=== PATIENT | male | born 1945 | race Caucasian/White ===

== ENCOUNTER → 2018-08-21 | Outpatient (CLI) | payer MEDICARE ==
[~2018-08-21] MED LIST: AMLO5TAB7 PO; ASPI325T17 PO; CHOL10002 PO; DOXY25TA22 PO; ENAL20TA PO; LOVA20TA2 PO; MELO15TA24 PO; OMNIPAQUE 350 MG/ML, 100ML BOTTLE ONE; S-AD400T3 PO; [UNRECOGNIZED DRUG - OTHER] PO
== END | disposition home or self-care (01) ==
LOC: RAD 13:04
DX: I71.4 Abdominal aortic aneurysm, without rupture (principal); K57.30 Diverticulosis of large intestine without perforation or abscess without bleeding; Z90.49 Acquired absence of other specified parts of digestive tract
CPT/HCPCS: 74174; Q9967

== ENCOUNTER → 2018-11-02 | Outpatient (CLI) | payer MEDICARE ==
[~2018-11-02] MED LIST changes: +ACET325T14 PO; +ALEN70TA5 PO; +AMLO-150 PO; -AMLO5TAB7 PO; +CALC-649 PO; +ERGO500017 PO; +FENO48TA5 PO; +GADOBUTROL 10 MMOL/10 ML VIAL ONE; +HYDR25TA6 PO; +METO25TA35 PO; -OMNIPAQUE 350 MG/ML, 100ML BOTTLE ONE; +ROSU40TA PO
== END | disposition home or self-care (01) ==
LOC: CFH 13:27
PROVIDERS: ATTEND Physician Assistant
DX: K76.89 Other specified diseases of liver (principal); I10 Essential (primary) hypertension; E78.5 Hyperlipidemia, unspecified
CPT/HCPCS: 74183; A9585

== ENCOUNTER 2018-11-11 09:22 | Day surgery (SDC) | payer MEDICARE ==
[~2018-11-11] VITALS: Ht 167.6 cm; Wt 88.3 kg
[~2018-11-11 09:22] MED LIST changes: -ALEN70TA5 PO; +ALEN70TA6 PO; -GADOBUTROL 10 MMOL/10 ML VIAL ONE
[2018-11-11] MEDS ORDERED: LACTATED RINGERS 1,000 ML IV SCH (10:19)
[2018-11-11] MEDS ORDERED: METO25TA35 PO (10:22)
[2018-11-11] MEDS ORDERED: ACET325T14 PO (10:22)
[2018-11-11 10:26] VITALS: BP 142/89
[2018-11-11] MEDS ORDERED: METOPROLOL 1 MG/ML, 5ML IV PRN (11:00)
[2018-11-11] MEDS ORDERED: LABETALOL 5MG/ML, 20ML IV PRN (11:00)
[2018-11-11] MEDS ORDERED: FENTANYL PF 100 MCG/2ML IV PRN (11:00)
[2018-11-11] MEDS ORDERED: ONDANSETRON 2MG/ML, 2ML IV PRN (11:00)
[2018-11-11] MEDS ORDERED: hydrALAzine 20 MG/ML, 1ML IV PRN (11:00)
[2018-11-11] MEDS ORDERED: PROPOFOL 10 MG/ML, 20ML ONE (11:35)
== END 2018-11-11 13:10 | disposition home or self-care (01) ==
LOC: OUT 09:22
PROVIDERS: ATTEND Internal Medicine
DX: K29.60 Other gastritis without bleeding (principal); K57.30 Diverticulosis of large intestine without perforation or abscess without bleeding; K64.0 First degree hemorrhoids; I10 Essential (primary) hypertension; E78.5 Hyperlipidemia, unspecified; Z87.39 Personal history of other diseases of the musculoskeletal system and connective tissue; Z98.890 Other specified postprocedural states; Z90.49 Acquired absence of other specified parts of digestive tract; Z87.891 Personal history of nicotine dependence; Z79.899 Other long term (current) drug therapy; Z86.010 Personal history of colon polyps
CPT/HCPCS: 43239; 45378; 88305; J2704; J7120

== ENCOUNTER 2018-11-20 08:26 | Day surgery (SDC) | payer MEDICARE ==
[~2018-11-20] VITALS: Ht 175.3 cm; Wt 89.0 kg
[2018-11-20] MEDS ORDERED: SODIUM CHLORIDE 0.9% 1,000 ML IV SCH (08:58)
[2018-11-20] MEDS ORDERED: PLEASE ENTER HEIGHT AND WEIGHT MC SCH (09:00)
[2018-11-20 09:11] VITALS: BP 142/91
[2018-11-20 09:52] LABS: INTERNATIONAL NORMALIZED RATIO 0.95 (0.93-1.1); PROTHROMBIN TIME 10.1 Seconds (9.6-11.5)
[2018-11-20] MEDS ORDERED: LIDOCAINE-MPF 1%, 5ML ONE (09:58)
[2018-11-20] MEDS ORDERED: FENTANYL PF 100 MCG/2ML ONE ×2 (10:08)
[2018-11-20] MEDS ORDERED: NALOXONE 1 MG/ML, 2ML ONE (10:09)
[2018-11-20] MEDS ORDERED: FLUMAZENIL 0.1 MG/1 ML, 5ML ONE (10:09)
[2018-11-20] MEDS ORDERED: MIDAZOLAM 1 MG/ML, 5ML ONE (10:09)
== END 2018-11-20 12:40 | disposition home or self-care (01) ==
LOC: OUT 08:26
PROVIDERS: ATTEND Internal Medicine
DX: D18.09 Hemangioma of other sites (principal); I10 Essential (primary) hypertension; Z88.5 Allergy status to narcotic agent; Z88.8 Allergy status to other drugs, medicaments and biological substances; Z79.01 Long term (current) use of anticoagulants
CPT/HCPCS: 36415; 47000; 77012; 85610; 85730; 88307; 99156; J2250; J3010; J7030; 99157; J2310

== ENCOUNTER 2018-11-24 08:47 | Outpatient (CLI) | payer MEDICARE ==
[2018-11-24] MEDS ORDERED: OMNIPAQUE 350 MG/ML, 100ML BOTTLE ONE (13:07)
== END 2018-11-24 23:59 | disposition home or self-care (01) ==
LOC: CFH 08:47
DX: K57.30 Diverticulosis of large intestine without perforation or abscess without bleeding (principal); M47.817 Spondylosis without myelopathy or radiculopathy, lumbosacral region; I71.4 Abdominal aortic aneurysm, without rupture
CPT/HCPCS: 74174; Q9967

== ENCOUNTER → 2019-02-16 | Outpatient (CLI) | payer MEDICARE | END | disposition home or self-care (01) | LOC: CFH 08:41 | PROVIDERS: ATTEND Physician Assistant | DX: M85.88 Other specified disorders of bone density and structure, other site (principal); Z88.5 Allergy status to narcotic agent; Z88.8 Allergy status to other drugs, medicaments and biological substances; Z87.891 Personal history of nicotine dependence | CPT/HCPCS: 77080 ==

== ENCOUNTER → 2021-02-15 | Outpatient (CLI) | payer MEDICARE ==
[~2021-02-15] MED LIST changes: -ALEN70TA6 PO; +ALEN70TA77 PO; -ENAL20TA PO; +ENAL20TA9 PO; +FENO48TA10 PO; -FENO48TA5 PO; +OMNIPAQUE 350 MG/ML, 100ML BOTTLE ONE
== END | disposition home or self-care (01) ==
LOC: CFH 09:08
PROVIDERS: ATTEND Physician Assistant Medical
DX: I71.4 Abdominal aortic aneurysm, without rupture (principal); N40.0 Benign prostatic hyperplasia without lower urinary tract symptoms
CPT/HCPCS: 74174; 82565; Q9967